=== PATIENT | female | born 1960 | race Caucasian/White ===

== ENCOUNTER 2022-01-31 18:23 | Inpatient (IN) | payer OTHER, MEDICAID ==
[~2022-01-31] VITALS: Ht 160 cm; Wt 82.1 kg
[2022-01-31 00:31] VITALS: BP 120/53
[2022-01-31 18:28] VITALS: BP 139/64
[2022-01-31 19:15] LABS: BASO % 0.7 % (0.0-1.0); EOS # 0.1 10*3/uL (0.0-0.4); EOS % 1.4 % (1.0-4.0); HEMATOCRIT 27.8 % (37.0-47.0); LYMPH # 0.9 10*3/uL (1.3-4.4); MEAN CELL VOLUME 78.5 fl (81.0-99.0); MEAN CORPUSCULAR HGB 22.3 pg (27.0-31.0); MEAN CORPUSCULAR HGB CONC 28.4 g/dl (33.0-37.0); MEAN PLATELET VOLUME 10.1 fl (9.6-12.3); MONO # 0.4 10*3/uL (0.1-1.0); MONO % 7.6 % (3.0-9.0); NEUT # 4.2 10*3/uL (2.3-7.9); NEUT % 73.9 % (47.0-73.0); PLATELET COUNT AUTOMATED 348 10*3/uL (130-400); RED BLOOD COUNT 3.54 10*6/uL (4.10-5.10); RED CELL DISTRI WIDTH 21.9 % (0-14.5); WHITE BLOOD COUNT 5.7 10*3/uL (4.8-10.8)
[2022-01-31 19:42] LABS: URINE AMPHETAMINES < 1000 (1000ng/ml); URINE BARBITURATES < 200 (200ng/ml); URINE BENZODIAZEPINES < 200 (200ng/ml); URINE CANNABINOIDS (THC) < 50 (50ng/ml); URINE COCAINE < 300 (300ng/ml); URINE METHADONE < 300 (300ng/ml); URINE OPIATES > 300 (300ng/ml)
[2022-01-31 19:46] LABS: ALKALINE PHOSPHATASE 108 U/L (45-117); BUN 17 mg/dl (7-24); CHLORIDE 115 mmol/L (98-107); CREATININE 0.96 mg/dL (0.55-1.02); POTASSIUM 4.1 mmol/L (3.5-5.1); SGOT/AST 34 IU/L (3-35); SGPT/ALT 24 U/L (12-78); SODIUM 147 mmol/L (136-145); TOTAL PROTEIN 7.1 gm/dL (6.4-8.2)
[2022-01-31 19:57] LABS: URINE PHENCYCLIDINE < 25 (25ng/ml)
[2022-01-31 19:58] LABS: ACETAMINOPHEN (TYLENOL) < 5.0 ug/ml (10-30); ETHYL ALCOHOL < 3.0 mg/dl (<3)
[2022-01-31 20:50] VITALS: BP 149/92
[2022-01-31] MEDS ORDERED: TRAZODONE50 MG PO (21:12)
[2022-01-31] MEDS ORDERED: LEVOTHYROXINE100 MC1 PO (21:12)
[2022-01-31] MEDS ORDERED: PREGABALIN75 MG PO (21:12)
[2022-01-31 21:17] LABS: BILIRUBIN Negative (Negative); BLOOD Negative (Negative); CLARITY Clear (Clear); COLOR Yellow (Yellow); GLUCOSE Negative (Negative); KETONE Trace (Negative); LEUKO ESTERASE Negative (Negative); NITRITE Negative (Negative); PH 6.5 (4.5-8.0); UROBILINOGEN 0.2 E.U./dl (0.0-1.0)
[2022-01-31 22:33] VITALS: BP 120/60
[2022-01-31 22:46] LABS: RBC 0-2 rbc/hpf (0-2)
[2022-01-31 23:52] VITALS: BP 134/72
[2022-02-01 00:20] VITALS: BP 139/59
[2022-02-01 00:31] VITALS: BP 120/53
[2022-02-01 04:00] VITALS: BP 139/65
[2022-02-01 06:08] LABS: IRON 49 ug/dL (50-170); TOTAL IRON BINDING CAPACITY 611 ug/dl (250-450)
[2022-02-01 06:09] LABS: RETICULOCYTE % 1.82 % (0.50-2.50)
[2022-02-01 08:00] VITALS: BP 155/56
[2022-02-01 12:00] VITALS: BP 152/63
[2022-02-01] MEDS ORDERED: ESTRACE1 M1 PO (15:18)
[2022-02-01 20:00] VITALS: BP 113/57
[2022-02-02 08:00] VITALS: BP 118/60
[2022-02-02] MEDS ORDERED: PALIPERIDONE ER3 MG PO (11:16)
[2022-02-02 12:00] VITALS: BP 102/50
[2022-02-02] MEDS ORDERED: Lovenox40 MG/0.4 SC (15:49)
[2022-02-02] MEDS ORDERED: NICODERM CQ1 EAC2 TD (15:51)
== END 2022-02-02 14:09 | DRG 917 ==
LOC: ED 18:23 → EDHOLD 23:26 → ICCU 23:26 → EDHOLD 02-01 00:07 → ICCU 02-01 00:47
PROVIDERS: Emergency Medicine; Internal Medicine; ADMIT Internal Medicine; ATTEND Internal Medicine
DX: T50.901A Poisoning by unspecified drugs, medicaments and biological substances, accidental (unintentional), initial encounter (principal); G93.41 Metabolic encephalopathy; E87.0 Hyperosmolality and hypernatremia; F25.0 Schizoaffective disorder, bipolar type; E83.41 Hypermagnesemia; E03.9 Hypothyroidism, unspecified; D50.9 Iron deficiency anemia, unspecified; E87.8 Other disorders of electrolyte and fluid balance, not elsewhere classified; R73.9 Hyperglycemia, unspecified; Z88.8 Allergy status to other drugs, medicaments and biological substances; Z79.890 Hormone replacement therapy; Y92.89 Other specified places as the place of occurrence of the external cause

== ENCOUNTER 2022-02-01 11:18 | Inpatient (IN) | payer OTHER, MEDICAID ==
[~2022-02-01] VITALS: Ht 160 cm; Wt 85.3 kg
[~2022-02-01 11:18] MED LIST: LEVOTHYROXINE100 MC1 PO; PREGABALIN75 MG PO; TRAZODONE50 MG PO
[2022-02-01] MEDS ORDERED: ESTRACE1 M1 PO (15:18)
[2022-02-02] MEDS ORDERED: PALIPERIDONE ER3 MG PO (11:16)
[2022-02-02] MEDS ORDERED: Lovenox40 MG/0.4 SC (15:49)
[2022-02-02] MEDS ORDERED: NICODERM CQ1 EAC2 TD (15:51)
[2022-02-02 18:44] VITALS: BP 102/58
[2022-02-02 20:00] VITALS: BP 140/88
[2022-02-03 05:51] LABS: ALKALINE PHOSPHATASE 85 U/L (45-117); BUN 17 mg/dl (7-24); CHLORIDE 113 mmol/L (98-107); CHOLESTEROL 141 mg/dL (<200); CREATININE 0.85 mg/dL (0.55-1.02); LDL CHOLESTEROL 72 mg/dL (9-159); POTASSIUM 4.3 mmol/L (3.5-5.1); SGOT/AST 21 IU/L (3-35); SGPT/ALT 22 U/L (12-78); SODIUM 145 mmol/L (136-145); TOTAL PROTEIN 5.8 gm/dL (6.4-8.2); TRIGLYCERIDES 96 mg/dl (<150)
[2022-02-03 06:27] LABS: MEAN CELL VOLUME 76.4 fl (81.0-99.0); MEAN CORPUSCULAR HGB 22.6 pg (27.0-31.0); MEAN CORPUSCULAR HGB CONC 29.6 g/dl (33.0-37.0); MEAN PLATELET VOLUME 10.4 fl (9.6-12.3); PLATELET COUNT AUTOMATED 317 10*3/uL (130-400); RED BLOOD COUNT 3.14 10*6/uL (4.10-5.10); RED CELL DISTRI WIDTH 21.2 % (0-14.5); WHITE BLOOD COUNT 3.9 10*3/uL (4.8-10.8)
[2022-02-03 06:33] LABS: MANUAL DIFF REFLEX YES
[2022-02-03 06:48] LABS: BILIRUBIN Negative (Negative); BLOOD Negative (Negative); CLARITY Clear (Clear); COLOR Yellow (Yellow); GLUCOSE Negative (Negative); KETONE Negative (Negative); LEUKO ESTERASE Negative (Negative); NITRITE Negative (Negative); PH 5.5 (4.5-8.0); UROBILINOGEN 0.2 E.U./dl (0.0-1.0)
[2022-02-03 06:58] LABS: BACTERIA 2+; EPITHELIAL CELLS 0-2; RBC 0-2 rbc/hpf (0-2); WBC 0-2 wbc/hpf (0-5)
[2022-02-03 07:50] LABS: BASOPHILS 2 % (0-1); TOTAL CELLS COUNTED 100 #CELLS
[2022-02-03 07:51] LABS: MICROCYTOSIS SLIGHT; OVALOCYTES FEW; PLATELET SUFFICIENCY NORMAL (NORMAL); POLYCHROMASIA SLIGHT; TARGET CELLS FEW
[2022-02-03 08:03] VITALS: BP 110/51
[2022-02-03 08:06] LABS: VITAMIN D, 25-HYDROXY 24.1 ng/mL (30-100)
[2022-02-03 20:00] VITALS: BP 141/69
[2022-02-04 06:36] LABS: HEMATOCRIT 24.7 % (37.0-47.0); MEAN CELL VOLUME 76.2 fl (81.0-99.0); MEAN CORPUSCULAR HGB 21.9 pg (27.0-31.0); MEAN CORPUSCULAR HGB CONC 28.7 g/dl (33.0-37.0); MEAN PLATELET VOLUME 10.1 fl (9.6-12.3); PLATELET COUNT AUTOMATED 308 10*3/uL (130-400); RED BLOOD COUNT 3.24 10*6/uL (4.10-5.10); RED CELL DISTRI WIDTH 21.2 % (0-14.5); WHITE BLOOD COUNT 3.6 10*3/uL (4.8-10.8)
[2022-02-04 06:55] LABS: MANUAL DIFF REFLEX YES
[2022-02-04 07:43] LABS: MICROCYTOSIS SLIGHT; OVALOCYTES FEW; PLATELET SUFFICIENCY NORMAL (NORMAL); POLYCHROMASIA SLIGHT; TARGET CELLS FEW; TOTAL CELLS COUNTED 100 #CELLS
[2022-02-04 07:49] VITALS: BP 102/47
[2022-02-04 07:51] VITALS: BP 90/50
[2022-02-04 15:55] VITALS: BP 106/60
[2022-02-05 06:28] LABS: HEMATOCRIT 24.7 % (37.0-47.0); MEAN CELL VOLUME 76.2 fl (81.0-99.0); MEAN CORPUSCULAR HGB 22.8 pg (27.0-31.0); MEAN PLATELET VOLUME 10.1 fl (9.6-12.3); PLATELET COUNT AUTOMATED 343 10*3/uL (130-400); RED BLOOD COUNT 3.24 10*6/uL (4.10-5.10); RED CELL DISTRI WIDTH 21.2 % (0-14.5); WHITE BLOOD COUNT 3.6 10*3/uL (4.8-10.8)
[2022-02-05 06:29] LABS: MANUAL DIFF REFLEX YES
[2022-02-05 07:20] LABS: ATYPICAL LYMPHS 1 % (0-0); BASOPHILS 1 % (0-1); MICROCYTOSIS SLIGHT; OVALOCYTES FEW; PLATELET SUFFICIENCY NORMAL (NORMAL); POLYCHROMASIA SLIGHT; SCHISTOCYTES FEW; TARGET CELLS FEW; TOTAL CELLS COUNTED 100 #CELLS
[2022-02-05 07:36] VITALS: BP 121/47
[2022-02-05] MEDS ORDERED: AMITRIPTYLINE25 MG PO (08:50)
[2022-02-05] MEDS ORDERED: PALIPERIDONE ER3 MG PO (08:50)
[2022-02-05] MEDS ORDERED: VITAMIN D3125 MC1 PO (08:50)
[2022-02-05] MEDS ORDERED: ARTHRITIS PAIN57 GM T (08:50)
[2022-02-05] MEDS ORDERED: PREGABALIN75 MG PO (09:59)
== END 2022-02-05 11:35 | disposition home or self-care (01) | DRG 885 ==
LOC: 3N 11:18
PROVIDERS: Internal Medicine; ADMIT Psychiatry & Neurology Psychiatry; ATTEND Psychiatry & Neurology Psychiatry
DX: F33.2 Major depressive disorder, recurrent severe without psychotic features (principal); G93.41 Metabolic encephalopathy; R65.10 Systemic inflammatory response syndrome (SIRS) of non-infectious origin without acute organ dysfunction; F25.0 Schizoaffective disorder, bipolar type; E03.9 Hypothyroidism, unspecified; G89.29 Other chronic pain; F17.210 Nicotine dependence, cigarettes, uncomplicated; D50.9 Iron deficiency anemia, unspecified; F51.04 Psychophysiologic insomnia; E55.9 Vitamin D deficiency, unspecified; T50.90 Poisoning by, adverse effect of and underdosing of unspecified drugs, medicaments and biological substances; Z88.8 Allergy status to other drugs, medicaments and biological substances; Z86.59 Personal history of other mental and behavioral disorders; Z79.890 Hormone replacement therapy

== ENCOUNTER 2022-02-11 22:04 | Emergency (ER) | payer OTHER, MEDICAID ==
[~2022-02-11] VITALS: Ht 160 cm; Wt 81.6 kg
[~2022-02-11 22:04] MED LIST changes: +AMITRIPTYLINE25 MG PO; +ARTHRITIS PAIN57 GM T; +ESTRACE1 M1 PO; +Lovenox40 MG/0.4 SC; +NICODERM CQ1 EAC2 TD; +PALIPERIDONE ER3 MG PO; +VITAMIN D3125 MC1 PO
[2022-02-11 22:59] LABS: BASO # 0.1 10*3/uL (0.0-0.1); BASO % 0.7 % (0.0-1.0); EOS # 0.2 10*3/uL (0.0-0.4); EOS % 3.1 % (1.0-4.0); HEMATOCRIT 24.1 % (37.0-47.0); LYMPH # 1.5 10*3/uL (1.3-4.4); LYMPH % 19.8 % (27.0-41.0); MEAN CELL VOLUME 77.7 fl (81.0-99.0); MEAN CORPUSCULAR HGB 22.6 pg (27.0-31.0); MEAN PLATELET VOLUME 9.5 fl (9.6-12.3); MONO # 0.6 10*3/uL (0.1-1.0); MONO % 8.1 % (3.0-9.0); NEUT # 5.1 10*3/uL (2.3-7.9); PLATELET COUNT AUTOMATED 364 10*3/uL (130-400); RED CELL DISTRI WIDTH 22.5 % (0-14.5); WHITE BLOOD COUNT 7.5 10*3/uL (4.8-10.8)
[2022-02-11 23:13] LABS: ALKALINE PHOSPHATASE 100 U/L (45-117); BUN 23 mg/dl (7-24); CHLORIDE 109 mmol/L (98-107); CREATININE 0.94 mg/dL (0.55-1.02); POTASSIUM 4.4 mmol/L (3.5-5.1); SGOT/AST 14 IU/L (3-35); SGPT/ALT 19 U/L (12-78); SODIUM 137 mmol/L (136-145); TOTAL PROTEIN 6.9 gm/dL (6.4-8.2)
[2022-02-11 23:18] LABS: BILIRUBIN Negative (Negative); BLOOD Negative (Negative); CLARITY Clear (Clear); COLOR Yellow (Yellow); GLUCOSE Negative (Negative); KETONE Trace (Negative); LEUKO ESTERASE Trace (Negative); NITRITE Negative (Negative); SPECIFIC GRAVITY 1.025 (1.001-1.030); UROBILINOGEN 0.2 E.U./dl (0.0-1.0)
[2022-02-11 23:35] LABS: BACTERIA 2+; EPITHELIAL CELLS 31-40
== END 2022-02-12 02:00 | disposition left against medical advice (07) ==
LOC: ED 22:04
PROVIDERS: Emergency Medicine
DX: D64.9 Anemia, unspecified (principal); Z87.891 Personal history of nicotine dependence; Z79.899 Other long term (current) drug therapy; Z88.8 Allergy status to other drugs, medicaments and biological substances

== ENCOUNTER 2022-02-25 14:55 | Inpatient (IN) | payer OTHER, MEDICAID ==
[~2022-02-25] VITALS: Ht 160 cm; Wt 77.1 kg
[2022-02-25 15:06] VITALS: BP 92/48
[2022-02-25 16:01] LABS: BASO % 0.5 % (0.0-1.0); EOS # 0.2 10*3/uL (0.0-0.4); EOS % 3.7 % (1.0-4.0); HEMATOCRIT 25.9 % (37.0-47.0); LYMPH # 1.2 10*3/uL (1.3-4.4); LYMPH % 20.8 % (27.0-41.0); MEAN CELL VOLUME 78.5 fl (81.0-99.0); MEAN CORPUSCULAR HGB 22.4 pg (27.0-31.0); MEAN CORPUSCULAR HGB CONC 28.6 g/dl (33.0-37.0); MEAN PLATELET VOLUME 9.9 fl (9.6-12.3); MONO # 0.4 10*3/uL (0.1-1.0); MONO % 7.4 % (3.0-9.0); NEUT % 67.4 % (47.0-73.0); PLATELET COUNT AUTOMATED 375 10*3/uL (130-400); RED CELL DISTRI WIDTH 20.8 % (0-14.5)
[2022-02-25 16:14] LABS: ACT PARTIAL THROMBO TIME 23.8 SECONDS (20.0-32.1)
[2022-02-25 16:27] LABS: CREATININE 1.19 mg/dL (0.55-1.02); POTASSIUM 3.8 mmol/L (3.5-5.1); TOTAL PROTEIN 6.9 gm/dL (6.4-8.2)
[2022-02-25 18:25] VITALS: BP 103/54
[2022-02-25] MEDS ORDERED: LYRICA75 M1 PO (18:31)
[2022-02-26] VITALS (10 sets, daily range): BP systolic 92–113; BP diastolic 40–65
[2022-02-26 06:39] LABS: BILIRUBIN Negative (Negative); BLOOD Negative (Negative); CLARITY Clear (Clear); COLOR Yellow (Yellow); GLUCOSE Negative (Negative); KETONE Negative (Negative); LEUKO ESTERASE Negative (Negative); NITRITE Negative (Negative); PH 5.5 (4.5-8.0); UROBILINOGEN 0.2 E.U./dl (0.0-1.0)
[2022-02-26 06:48] LABS: URINE AMPHETAMINES < 1000 (1000ng/ml); URINE BARBITURATES < 200 (200ng/ml); URINE BENZODIAZEPINES < 200 (200ng/ml); URINE CANNABINOIDS (THC) < 50 (50ng/ml); URINE COCAINE < 300 (300ng/ml); URINE METHADONE < 300 (300ng/ml); URINE OPIATES < 300 (300ng/ml)
[2022-02-26 06:56] LABS: BACTERIA 1+; RBC 0-2 rbc/hpf (0-2)
[2022-02-26 06:59] LABS: URINE PHENCYCLIDINE < 25 (25ng/ml)
[2022-02-26 07:40] LABS: HEMATOCRIT 23.8 % (37.0-47.0); MEAN CELL VOLUME 78.8 fl (81.0-99.0); MEAN CORPUSCULAR HGB 22.5 pg (27.0-31.0); MEAN CORPUSCULAR HGB CONC 28.6 g/dl (33.0-37.0); MEAN PLATELET VOLUME 9.6 fl (9.6-12.3); PLATELET COUNT AUTOMATED 323 10*3/uL (130-400); RED BLOOD COUNT 3.02 10*6/uL (4.10-5.10); RED CELL DISTRI WIDTH 20.7 % (0-14.5); WHITE BLOOD COUNT 3.7 10*3/uL (4.8-10.8)
[2022-02-26 07:41] LABS: MANUAL DIFF REFLEX YES
[2022-02-26 07:59] LABS: BUN 15 mg/dl (7-24); CHLORIDE 111 mmol/L (98-107); CREATININE 1.01 mg/dL (0.55-1.02); POTASSIUM 3.9 mmol/L (3.5-5.1); SODIUM 143 mmol/L (136-145)
[2022-02-26 08:04] LABS: BASOPHILS 3 % (0-1); MICROCYTOSIS SLIGHT; POLYCHROMASIA SLIGHT; TARGET CELLS FEW; TOTAL CELLS COUNTED 100 #CELLS
[2022-02-26 08:05] LABS: BURR CELLS FEW; OVALOCYTES FEW; PLATELET SUFFICIENCY NORMAL (NORMAL); SCHISTOCYTES FEW
[2022-02-26 13:08] LABS: RETICULOCYTE % 1.6 % (0.50-2.50)
[2022-02-26 13:20] LABS: IRON 85 ug/dL (50-170)
[2022-02-26 13:41] LABS: FERRITIN 3.5 ng/mL (10.0-291.0)
[2022-02-26 15:32] LABS: BASO # 0.1 10*3/uL (0.0-0.1); BASO % 1.4 % (0.0-1.0); EOS # 0.3 10*3/uL (0.0-0.4); EOS % 7.8 % (1.0-4.0); HEMATOCRIT 27.9 % (37.0-47.0); LYMPH # 1.5 10*3/uL (1.3-4.4); LYMPH % 35.5 % (27.0-41.0); MEAN CELL VOLUME 81.6 fl (81.0-99.0); MEAN CORPUSCULAR HGB 24.3 pg (27.0-31.0); MEAN CORPUSCULAR HGB CONC 29.7 g/dl (33.0-37.0); MEAN PLATELET VOLUME 9.9 fl (9.6-12.3); MONO # 0.4 10*3/uL (0.1-1.0); MONO % 9.2 % (3.0-9.0); NEUT % 45.9 % (47.0-73.0); PLATELET COUNT AUTOMATED 281 10*3/uL (130-400); RED BLOOD COUNT 3.42 10*6/uL (4.10-5.10); RED CELL DISTRI WIDTH 21.2 % (0-14.5); WHITE BLOOD COUNT 4.3 10*3/uL (4.8-10.8)
== END 2022-02-26 16:25 | disposition left against medical advice (07) | DRG 314 ==
LOC: ED 14:55 → 5E 16:20 → EDHOLD 16:20 → 5E 17:33
PROVIDERS: Emergency Medicine; Internal Medicine; Student in an Organized Health Care Education/Training Program; ADMIT Student in an Organized Health Care Education/Training Program; ATTEND Student in an Organized Health Care Education/Training Program
PROC: 30233N1 Transfusion of Nonautologous Red Blood Cells into Peripheral Vein, Percutaneous Approach (ICD-10-PCS; principal; 2022-02-26)
DX: I95.9 Hypotension, unspecified (principal); N17.0 Acute kidney failure with tubular necrosis; E44.0 Moderate protein-calorie malnutrition; E03.9 Hypothyroidism, unspecified; G62.9 Polyneuropathy, unspecified; F25.0 Schizoaffective disorder, bipolar type; D50.9 Iron deficiency anemia, unspecified; F17.210 Nicotine dependence, cigarettes, uncomplicated; F22 Delusional disorders; E55.9 Vitamin D deficiency, unspecified; Z88.8 Allergy status to other drugs, medicaments and biological substances; Z82.49 Family history of ischemic heart disease and other diseases of the circulatory system; Z86.59 Personal history of other mental and behavioral disorders; Z68.30 Body mass index [BMI] 30.0-30.9, adult; Z53.29 Procedure and treatment not carried out because of patient's decision for other reasons

== ENCOUNTER → 2022-04-10 | Outpatient (CLI) | payer OTHER, MEDICAID ==
[~2022-04-10] MED LIST changes: +LYRICA75 M1 PO
== END | disposition home or self-care (01) ==
LOC: MAMMO 13:30
PROVIDERS: ATTEND Nurse Practitioner Family
DX: N63.22 Unspecified lump in the left breast, upper inner quadrant (principal); R92.2 Inconclusive mammogram; N63.10 Unspecified lump in the right breast, unspecified quadrant

== ENCOUNTER → 2022-04-28 | Outpatient (CLI) | payer OTHER, MEDICAID | END | disposition home or self-care (01) | LOC: RAD 17:14 | PROVIDERS: ATTEND Nurse Practitioner Family | DX: M51.36 Other intervertebral disc degeneration, lumbar region (principal); M48.061 Spinal stenosis, lumbar region without neurogenic claudication ==

== ENCOUNTER → 2023-07-17 | Outpatient (CLI) | payer OTHER | END | disposition home or self-care (01) | LOC: CARD 13:54 | PROVIDERS: ATTEND Anesthesiology | DX: Z01.818 Encounter for other preprocedural examination (principal) ==

== ENCOUNTER → 2024-01-13 | Outpatient (CLI) | payer OTHER ==
[~2024-01-13] MED LIST changes: +OXYCODONE5 M1 PO; +SYNTHROID25 MCG PO; +VISTARIL25 MG PO
[2024-01-13 07:52] LABS: BASO % 0.4 % (0.0-1.0); EOS # 0.3 10*3/uL (0.0-0.4); EOS % 3.3 % (1.0-4.0); HEMATOCRIT 43.6 % (37.0-47.0); LYMPH # 2.1 10*3/uL (1.3-4.4); LYMPH % 21.8 % (27.0-41.0); MEAN CELL VOLUME 101.4 fl (81.0-99.0); MEAN CORPUSCULAR HGB 34.7 pg (27.0-31.0); MEAN CORPUSCULAR HGB CONC 34.2 g/dl (33.0-37.0); MEAN PLATELET VOLUME 9.2 fl (9.6-12.3); MONO # 0.9 10*3/uL (0.1-1.0); MONO % 9.8 % (3.0-9.0); NEUT # 6.2 10*3/uL (2.3-7.9); NEUT % 64.4 % (47.0-73.0); PLATELET COUNT AUTOMATED 237 10*3/uL (130-400); RED CELL DISTRI WIDTH 12.6 % (0-14.5); WHITE BLOOD COUNT 9.6 10*3/uL (4.8-10.8)
[2024-01-13 09:03] LABS: ALKALINE PHOSPHATASE 66 U/L (46-116); BUN 11 mg/dl (9-23); CHLORIDE 109 mmol/L (98-107); CHOLESTEROL 162 mg/dL (<200); LDL CHOLESTEROL 101 mg/dL (9-159); POTASSIUM 3.7 mmol/L (3.4-5.1); SGPT/ALT 16 U/L (5-49); TOTAL PROTEIN 6.1 gm/dL (6.0-8.0); TRIGLYCERIDES 137 mg/dl (<150)
== END | disposition home or self-care (01) ==
LOC: LAB 07:34
PROVIDERS: ATTEND Nurse Practitioner Family
DX: E03.9 Hypothyroidism, unspecified (principal)

== ENCOUNTER → 2024-03-09 | Day surgery (SDC) | payer OTHER ==
[~2024-03-09] VITALS: Ht 157.4 cm; Wt 66.7 kg
[~2024-03-09] MED LIST changes: +ARIMIDEX1 MG PO; +BALANCED SALT IRRIG SOLN NO.2 1.13 ML,Lidocaine Hydrochloride 0.37 ML,EPINEPHrine Hydro... IV SCH; +Balanced Salt Solution 500 ML OPH SCH; +Cefuroxime Sodium 5 MG in BALANCED SALT IRRIG SOLN NO.2 0.5 ML,SYRINGE, DISPOSABLE, 10 ... IO SCH; +LYRICA100 M1 PO; +METAMUCIL660 GM PO; +OFLOXACIN 0.3% 5 ML BOTTLE ONE; +OFLOXACIN 0.3% 5 ML BOTTLE OPH SCH; +OXYCODONE HCL10 M1 PO; +POVIDONE IODINE 5% OPHTHALMIC 30 ML BOTTLE OPH ONE; +POVIDONE IODINE 5% OPHTHALMIC 30 ML BOTTLE OPH SCH; +Phenylephrine Hydrochloride 2 ML BOT OPH ONE; +Phenylephrine Hydrochloride 2 ML BOT OPH SCH; +Proparacaine Hydrochloride 15 ML BOT OPH ONE; +Proparacaine Hydrochloride 15 ML BOT OPH SCH; +SODIUM CHLORIDE 0.9% 1,000 ML IV ONE; +SODIUM CHLORIDE 0.9% 1,000 ML IV SCH; +SYNTHROID,LEV125 MCG PO; +TETRACAINE HCL 10 DROP BOT OPH SCH; +TROPICAMIDE 3 ML BOT OPH ONE; +TROPICAMIDE 3 ML BOT OPH SCH; +Tetracaine Hydrochloride 0.5% 4 ML BOT OPH ONE; +Tetracaine Hydrochloride 0.5% 4 ML BOT OPH SCH; +XANAX1 MG PO; +prednisoLONE acetate 1% OPHTHALMIC 5 ML BOT OPH ONE; +prednisoLONE acetate 1% OPHTHALMIC 5 ML BOT OPH SCH
[2024-03-09 11:01] VITALS: BP 125/56
[2024-03-09 11:31] VITALS: BP 108/55
[2024-03-09 11:36] VITALS: BP 113/67
[2024-03-09 11:41] VITALS: BP 114/75
[2024-03-09 11:46] VITALS: BP 102/66
== END | disposition home or self-care (01) ==
LOC: SDC 01-08 10:15
PROVIDERS: ATTEND Ophthalmology
DX: H25.11 Age-related nuclear cataract, right eye (principal); J44.9 Chronic obstructive pulmonary disease, unspecified; N18.30 Chronic kidney disease, stage 3 unspecified; M47.9 Spondylosis, unspecified; F41.9 Anxiety disorder, unspecified; E03.9 Hypothyroidism, unspecified; F31.9 Bipolar disorder, unspecified; E44.0 Moderate protein-calorie malnutrition; F17.210 Nicotine dependence, cigarettes, uncomplicated; F25.0 Schizoaffective disorder, bipolar type; Z79.890 Hormone replacement therapy; Z79.899 Other long term (current) drug therapy; Z98.890 Other specified postprocedural states